=== PATIENT | male | born 1965 | race Caucasian/White ===

== ENCOUNTER 2022-12-01 11:07 | Emergency (ER) | payer SELFPAY ==
[2022-12-01 11:29] VITALS: BP 132/84; PULSE 83; RESP 18; TEMP 36.7; O2SAT 99
[2022-12-01 11:29] LABS: Glucose Point of Care 388 mg/dl (65-105)
--- NOTE | 2022-12-01 11:44 | ED.GENADULT ---
HPI - General Adult General Chief complaint: Recheck/Abnormal Lab/Rx Stated complaint: High Blood Suger Time Seen by Provider: 12/01/22 11:23 Source: RN notes reviewed History of Present Illness HPI narrative: Patient presents emergency department from home for possible diabetes mellitus. Patient states over the past 2 weeks he has been having increased thirst as well as increased urination. States he is also been noting intermittent muscle cramping. He states that his mother is a diabetic and he knew the symptoms were concerning for diabetes and knew he needed to be evaluated and came in today. He denies any history of diabetes mellitus he states that he has had no fevers or chills chest pain shortness of breath abdominal pain nausea vomiting or any other symptoms Related Data Allergies Allergy/AdvReac Type Severity Reaction Status Date / Time No Known Allergies Allergy Unverified 01/09/19 06:39 Review of Systems Review of Systems: Gen.: Denies fevers or chills ENT: Denies congestion reports increased thirst Respiratory: Denies shortness of breath or cough CV: Denies chest pain or palpitations GI: Denies abdominal pain nausea, emesis or diarrhea reports increased urination Musculoskeletal: Denies back pain or muscle pain Neuro: Denies numbness, tingling, weakness or focal weakness Skin: Denies rash Except as documented, all other systems reviewed and negative [facility] Past Medical History Medical History (Updated 12/01/22 @ 15:18 by Valentin Rich DO) Patient denies significant medical history Social History Social History (Updated 12/01/22 @ 11:46 by Valentin Rich DO) Smoking status: Never smoker Exam Narrative: APPEARANCE: No acute distress, nontoxic, resting in bed EYES: EOMI HEENT: Normocephalic, atraumatic, OMM RESPIRATORY: No respiratory distress Clear to auscultation bilaterally with no rhonchi wheezing or rales. CARDIOVASCULAR: Regular rate and rhythm without murmurs rubs or gallops. ABDOMINAL: Soft, nontender, nondistended, no rebound or guarding MUSCULOSKELETAl: Moves all extremities. No clubbing, cyanosis or edema. NEURO: Awake and alert. Following commands, speech normal, no focal deficits SKIN:: Warm, dry. No rashes lesions or abrasions PSYCHIATRIC: Normal affect/mood, Course Course Emergency Course: Patient's PCP was paged Following blood work I went and evaluated the patient patient has no tenderness of her upper quadrant discussed mild elevation of his liver function test recommend he follow-up with his PCP Discussed with patient results of workup and diagnosis. Discussed need for follow-up with primary care, proper use of medication, and reasons to return to the emergency department. Patient understands and agrees to current treatment plan Vital Signs Vital signs: Vital Signs Temperature 98.1 F 12/01/22 11:29 Pulse Rate 83 12/01/22 11:29 Respiratory Rate 18 12/01/22 11:29 Blood Pressure 132/84 12/01/22 11:29 Pulse Oximetry 99 12/01/22 11:29 Oxygen Delivery Room Air 12/01/22 11:29 Temperature 98.1 F 12/01/22 11:29 Pulse Rate 83 12/01/22 11:29 Respiratory Rate 18 12/01/22 11:29 Blood Pressure 132/84 12/01/22 11:29 Pulse Oximetry 99 12/01/22 11:29 Oxygen Delivery Room Air 12/01/22 11:29 Medical Decision Making [facility] Narrative Medical decision making narrative: Patient presented for possible diabetes mellitus blood work does show elevation in glucose at 410 patient was hydrated with glucose decreasing down to 317 he was placed on metformin twice daily I did attempted to page his PCP. Patient has a mild elevation of liver function test he has no tenderness in right upper quadrant he denies any regular alcohol use discussed with patient need for follow-up with his PCP for this will discharge to follow-up as an outpatient Vital Signs Vital Signs: Vital Signs Temperature 98.1 F 12/01/22 11:29 Pulse Rate 83 12/01/22 11:29 Res
[2022-12-01 12:18] LABS: Basophils Absolute Auto 0.1 K/mm3 (0.0-0.1); Basophils Percent Auto 0.5 % (0.2-1.2); Eosinophils Absolute Auto 0.3 K/mm3 (0-0.3); Eosinophils Percent Auto 3.4 % (0-4.4); Hematocrit 45.3 % (42.0-52.0); Hemoglobin 16.1 g/dL (14.0-18.0); Immature Granulocyte Absolute 0.05 K/mm3 (0.00-0.031); Immature Granulocyte Percent A 0.5 % (0-0.5); Lymphocytes Absolute Auto 1.85 K/mm3 (0.9-3.2); Lymphocytes Percent Auto 18.2 % (18.3-44.2); Mean Corpuscular HGB Conc 35.5 g/dl (32-36); Mean Corpuscular Hemoglobin 29.9 pg (26-34); Mean Corpuscular Volume 84.2 fl (80-100); Mean Platelet Volume 10.9 fl (7.4-10.4); Monocytes Absolute Auto 0.7 K/mm3 (0.1-0.6); Monocytes Percent Auto 6.9 % (2.6-8.5); Neutrophils Absolute Auto 7.2 K/mm3 (1.3-6.7); Neutrophils Percent Auto 70.5 % (45.5-73.1); Platelet Count Result 301 k/mm3 (150-375); Red Blood Count 5.38 M/mm3 (4.6-6.20); White Blood Count 10.1 K/mm3 (4.5-10.0)
[2022-12-01] MEDS: SODIUM CHLORIDE 0.9% IV 1,000 ML 999 ML IV CONT ×2 (12:18→13:15)
[2022-12-01 12:21] LABS: Appearance Urine Clear (Clear); Bilirubin Urine 1+ (Negative); Blood Urine Negative (Negative); Color Urine Yellow (Yellow); Glucose Urine UA 3+ mg/dL (Negative); Ketones Urine 2+ mg/dL (Negative); Leukocyte Esterase Ur Negative LEU/UL (Negative); Nitrate Urine Negative (Negative); Protein Urine 1+ mg/dL (Negative); Urobilinogen Urine 0.2 mg/dL (<2.0); pH Urine 5.5 (5.0-9.0)
[2022-12-01 12:23] LABS: Mucus Urine Rare /lpf; Squamous Epithelial Cell Urine Rare /hpf (Few)
[2022-12-01 12:25] LABS: Add Urine Microscopic? YES
[2022-12-01 12:28] LABS: Alanine Aminotransferase 67 U/L (6-50); Albumin Level 4.7 g/dL (3.5-5.1); Alkaline Phosphatase 132 U/L (38-126); Anion Gap 9 mmol/L (8-16); Aspartate Amino Transferase 45 U/L (17-59); Bilirubin,Total 0.7 mg/dL (0.2-1.3); Blood Urea Nitrogen 19 mg/dL (9-20); Calcium 9.1 mg/dL (8.4-10.2); Carbon Dioxide 28 mmol/L (22-30); Chloride 90 mmol/L (98-107); Creatine Kinase 172 U/L (55-170); Estimated Glomerular Filt Rate > 60; Glucose 410 mg/dL (65-110); Magnesium 1.7 mg/dL (1.6-2.3); Potassium 3.6 mmol/L (3.4-5.0); Sodium 127 mmol/L (137-145)
[2022-12-01 12:54] LABS: Hemoglobin A1C 10.7 % (<5.7)
--- NOTE | 2022-12-01 14:19 | PC.NURSE ---
BS 317 at 1416
[2022-12-01 14:55] LABS: Glucose Point of Care 317 mg/dl (65-105)
[2022-12-01] MEDS: metFORMIN HCL 500 MG TABLET PO (15:17)
--- NOTE | 2023-01-01 10:33 | PC.NURSE ---
LATE ENTRY This note is being entered to document information to the patient's record. The following information was omitted on [12/01/22], by [Gwen Waite RN]. NS #1 bag infused at 1310. NS #2 bag infused at 1415.
== END 2022-12-01 15:35 | disposition home or self-care (01) ==
PROVIDERS: Emergency Provider Emergency Medicine; PCP Nurse Practitioner Family
DX: E11.9 Type 2 diabetes mellitus without complications (principal)
CPT/HCPCS: 36415; 80053; 81001; 82550; 82948; 83036; 83735; 85025; 96360; 96361; 99283; A9270; J7030